=== PATIENT | female | born 1995 | race Caucasian/White ===

== ENCOUNTER → 2017-08-08 | Outpatient (CLI) | payer OTHER ==
[~2017-08-08] MED LIST: CODGUAEL PO; OTC COUGH MED; Omeprazole20 M1 PO
== END | disposition home or self-care (01) ==
LOC: LAB EV 14:21 → LAB SHORT 14:21
DX: J02.9 Acute pharyngitis, unspecified (principal)
CPT/HCPCS: 87070

== ENCOUNTER → 2018-05-02 | Outpatient (CLI) | payer BC | END | disposition home or self-care (01) | LOC: LAB SHORT 14:38 → LAB EV 14:38 | DX: R50.9 Fever, unspecified (principal) | CPT/HCPCS: 87070 ==

== ENCOUNTER 2018-05-08 17:13 | Emergency (ER) | payer BC ==
[~2018-05-08] VITALS: Ht 167.6 cm; Wt 61.2 kg
== END 2018-05-08 19:04 | disposition home or self-care (01) ==
LOC: ER 17:13
DX: G03.9 Meningitis, unspecified (principal); J02.9 Acute pharyngitis, unspecified; J04.0 Acute laryngitis
CPT/HCPCS: 99283; J1100; Q0163

== ENCOUNTER → 2020-05-05 | Outpatient (CLI) | payer OTHER ==
[~2020-05-05] MED LIST changes: +ACCUTANE30 MG PO; +CITA20 PO; +CITALOPRAM HBR10 MG PO
[2020-05-05 13:05] LABS: Source, Urine Clean Catch
[2020-05-05 17:52] LABS: Appearance, Urine Clear (Clear); Bilirubin, Urine Neg (Neg); Blood, Urine 1+ (Neg); Color, Urine Yellow (P-Yellow); Glucose Qualitative, Urine Neg (Neg); Ketones, Urine Neg (Neg); Leukocyte Esterase, Urine 1+ (Neg); Nitrite, Urine Pos (Neg); Protein, Urine Neg (Neg); Urobilinogen, Urine NORM (Normal)
[2020-05-05 18:14] LABS: Bacteria Many /hpf; Red Blood Cells, Urine 0-2 /hpf (0-2); Squamous Epithelial Cells Few /hpf (Few)
[2020-05-06 10:30] LABS: Candida species (DNA Probe) Negative (NEGATIVE); G. vaginalis (DNA Probe) Positive (NEGATIVE); T. vaginalis (DNA Probe) Negative (NEGATIVE)
[2020-05-07 03:08] LABS: CHLAMYDIA TRACHOMATIS, NAA Negative (Negative); HPV 16 Negative (Negative); HPV 18 Negative (Negative); HPV OTHER HR TYPES Negative (Negative)
== END | disposition home or self-care (01) ==
LOC: LAB SRC 13:03
PROVIDERS: Nurse Practitioner Family
DX: Z12.4 Encounter for screening for malignant neoplasm of cervix (principal); N72 Inflammatory disease of cervix uteri
CPT/HCPCS: 81001; 87077; 87086; 87186; 87480; 87491; 87510; 87591; 87624; 87660; G0123

== ENCOUNTER 2021-06-01 15:16 | Emergency (ER) | payer OTHER ==
[~2021-06-01] VITALS: Ht 170.2 cm; Wt 65.8 kg
[2021-06-01 15:53] LABS: Source, Urine Clean Catch
[2021-06-01 15:59] LABS: Appearance, Urine Clear (Clear); Bilirubin, Urine Neg (Neg); Blood, Urine Neg (Neg); Color, Urine Yellow (P-Yellow); Glucose Qualitative, Urine Neg (Neg); Ketones, Urine Neg (Neg); Leukocyte Esterase, Urine 2+ (Neg); Nitrite, Urine Neg (Neg); Protein, Urine Neg (Neg); Urobilinogen, Urine NORM (Normal)
[2021-06-01 16:02] LABS: BASOPHILS ABSOLUTE AUTO 0.04 K/mm3 (0.00-0.23); BASOPHILS PERCENT AUTO 0 % (0-2); EOSINOPHILS ABSOLUTE AUTO 0.09 K/mm3 (0.00-0.68); EOSINOPHILS PERCENT AUTO 1 % (0-6); Hematocrit 39.8 % (33.0-51.0); Hemoglobin 13.4 g/dL (11.5-16.0); IMMATURE GRAN ABSOLUTE AUTO 0.02 K/mm3 (0.00-0.10); IMMATURE GRAN PERCENT AUTO 0 % (0-1); LYMPHOCYTES ABSOLUTE AUTO 1.79 K/mm3 (0.84-5.20); LYMPHOCYTES PERCENT AUTO 20 % (21-46); MONOCYTES ABSOLUTE AUTO 0.81 K/mm3 (0.16-1.47); MONOCYTES PERCENT AUTO 9 % (4-13); Mean Corpuscular HGB 29.1 pg (26.0-34.0); Mean Corpuscular HGB Conc 33.7 g/dL (31.5-36.5); Mean Corpuscular Volume 86 fL (80-100); Mean Platelet Volume 12.8 fL (9.1-12.4); NEUTROPHILS ABSOLUTE AUTO 6.17 K/mm3 (1.96-9.15); NEUTROPHILS PERCENT AUTO 69 % (41-73); Platelet Count 230 K/mm3 (150-400); RDW Coefficient Variation 12.4 % (11.7-14.2); RDW Standard Deviation 39.4 fL (35.1-46.3); Red Blood Cell Count 4.61 M/mm3 (3.80-5.20); White Blood Cell Count 8.92 K/mm3 (4.00-11.30)
[2021-06-01 16:20] LABS: Alanine Aminotransfer (ALT/SGP 20 U/L (12-78); Albumin, Blood 4.2 g/dL (3.4-5.0); Albumin/Globulin Ratio 1.2 (0.8-1.8); Alk Phos 58 U/L (50-136); Anion Gap 5 mmol/L (6-16); Aspartate Aminotrans (AST/SGOT 15 U/L (12-37); Bilirubin, Total 0.6 mg/dL (0.1-1.0); Blood Urea Nitrogen 11 mg/dL (8-24); Bun/Creatinine Ratio 13.8 (12.0-20.0); CO2, Blood 25 mmol/L (21-32); Calcium, Blood 9.2 mg/dL (8.5-10.1); Chloride, Blood 109 mmol/L (98-108); Globulin, Blood 3.4 g/dL (2.2-4.0); Glomerular Filtration Rate >60 (60-); Glucose, Blood 90 mg/dL (70-99); Potassium, Blood 4.1 mmol/L (3.5-5.5); Sodium, Blood 139 mmol/L (136-145); Total Protein, Blood 7.6 g/dL (6.4-8.2)
[2021-06-01 16:22] LABS: Bacteria Mod /hpf; Red Blood Cells, Urine 0-2 /hpf (0-2); Squamous Epithelial Cells Few /hpf (Few)
[2021-06-01 16:23] LABS: U Amphetamine Screen Not Detected; U Barbituate Screen Not Detected; U Benzodiazapine Screen Not Detected; U Buprenorphine Screen Not Detected; U Cannabinoids Screen Not Detected; U Cocaine Screen Not Detected; U Methadone Screen Not Detected; U Methamphetamine Screen Not Detected; U Opiates Screen Not Detected; U Oxycodone Screen Not Detected; U Phencyclidine Screen Not Detected; U Propoxyphene Screen Not Detected
== END 2021-06-01 18:11 | disposition home or self-care (01) ==
LOC: ER 15:16
PROVIDERS: Physician Assistant
DX: R07.9 Chest pain, unspecified (principal)
CPT/HCPCS: 36415; 71046; 80053; 81001; 81025; 83690; 83880; 84484; 85025; 87086; 93005; 93010; 99285-25

== ENCOUNTER 2022-03-30 11:53 | Emergency (ER) | payer OTHER ==
[~2022-03-30] VITALS: Ht 170.2 cm; Wt 72.6 kg
[2022-03-30 12:32] LABS: BASOPHILS ABSOLUTE AUTO 0.05 K/mm3 (0.00-0.23); BASOPHILS PERCENT AUTO 1 % (0-2); EOSINOPHILS ABSOLUTE AUTO 0.06 K/mm3 (0.00-0.68); EOSINOPHILS PERCENT AUTO 1 % (0-6); Hematocrit 40.1 % (33.0-51.0); Hemoglobin 13.6 g/dL (11.5-16.0); IMMATURE GRAN ABSOLUTE AUTO 0.03 K/mm3 (0.00-0.10); IMMATURE GRAN PERCENT AUTO 0 % (0-1); LYMPHOCYTES ABSOLUTE AUTO 1.31 K/mm3 (0.84-5.20); LYMPHOCYTES PERCENT AUTO 18 % (21-46); MONOCYTES PERCENT AUTO 8 % (4-13); Mean Corpuscular HGB 28.6 pg (26.0-34.0); Mean Corpuscular HGB Conc 33.9 g/dL (31.5-36.5); Mean Corpuscular Volume 84 fL (80-100); Mean Platelet Volume 11.8 fL (9.1-12.4); NEUTROPHILS ABSOLUTE AUTO 5.41 K/mm3 (1.96-9.15); NEUTROPHILS PERCENT AUTO 73 % (41-73); Platelet Count 307 K/mm3 (150-400); RDW Coefficient Variation 12.3 % (11.7-14.2); RDW Standard Deviation 37.1 fL (35.1-46.3); Red Blood Cell Count 4.76 M/mm3 (3.80-5.20); White Blood Cell Count 7.46 K/mm3 (4.00-11.30)
[2022-03-30 12:51] LABS: Acetaminophen, Random <2.0 ug/mL (10.0-30.0); Ethanol (Alcohol), Blood, Med <3 mg/dL; Salicylate <1.7 mg/dL (2.8-20.0)
[2022-03-30 13:07] LABS: Alanine Aminotransfer (ALT/SGP 22 U/L (12-78); Albumin, Blood 4.2 g/dL (3.4-5.0); Albumin/Globulin Ratio 1.2 (0.8-1.8); Alk Phos 72 U/L (50-136); Anion Gap 5 mmol/L (6-16); Aspartate Aminotrans (AST/SGOT 17 U/L (12-37); Bilirubin, Total 0.3 mg/dL (0.1-1.0); Blood Urea Nitrogen 11 mg/dL (8-24); Bun/Creatinine Ratio 13.7 (12.0-20.0); CO2, Blood 24 mmol/L (21-32); Calcium, Blood 9.2 mg/dL (8.5-10.1); Chloride, Blood 110 mmol/L (98-108); Globulin, Blood 3.6 g/dL (2.2-4.0); Glomerular Filtration Rate 105 (60-); Glucose, Blood 104 mg/dL (70-99); Potassium, Blood 3.9 mmol/L (3.5-5.5); Sodium, Blood 139 mmol/L (136-145); Total Protein, Blood 7.8 g/dL (6.4-8.2)
[2022-03-30 13:56] LABS: Influenza A, PCR NEGATIVE (NEGATIVE); Influenza B, PCR NEGATIVE (NEGATIVE); Resp Syncytial Virus, PCR NEGATIVE (NEGATIVE); SARS-Cov-2 (COVID-19) PCR, MMC NEGATIVE (NEGATIVE)
[2022-03-30 14:41] LABS: Source, Urine Clean Catch
[2022-03-30 14:49] LABS: Appearance, Urine Clear (Clear); Bilirubin, Urine Neg (Neg); Blood, Urine Neg (Neg); Color, Urine Yellow (P-Yellow); Glucose Qualitative, Urine Neg (Neg); Ketones, Urine Neg (Neg); Leukocyte Esterase, Urine 1+ (Neg); Nitrite, Urine Neg (Neg); Protein, Urine Neg (Neg); Urobilinogen, Urine NORM (Normal)
[2022-03-30 15:17] LABS: U Amphetamine Screen Not Detected; U Barbituate Screen Not Detected; U Benzodiazapine Screen Not Detected; U Buprenorphine Screen Not Detected; U Cannabinoids Screen Not Detected; U Cocaine Screen Not Detected; U Methadone Screen Not Detected; U Methamphetamine Screen Not Detected; U Opiates Screen Not Detected; U Oxycodone Screen Not Detected; U Phencyclidine Screen Not Detected; U Propoxyphene Screen Not Detected
[2022-03-30 15:23] LABS: Bacteria Mod /hpf; Mucus Light (0-Heavy); Red Blood Cells, Urine 0-2 /hpf (0-2); Squamous Epithelial Cells Rare /hpf (Few); White Blood Cells, Urine 0-2 /hpf (0-5)
== END 2022-03-30 16:11 | disposition home or self-care (01) ==
LOC: ER 11:53
PROVIDERS: Physician Assistant
DX: F43.9 Reaction to severe stress, unspecified (principal); Z79.899 Other long term (current) drug therapy; Z20.822 Contact with and (suspected) exposure to COVID-19
CPT/HCPCS: 0241U; 36415; 80053; 81001; 81025; 85025; A9270; G0480

== ENCOUNTER → 2022-11-01 | Outpatient (CLI) | payer OTHER ==
[2022-11-02 13:59] LABS: Candida species (DNA Probe) Negative (NEGATIVE); G. vaginalis (DNA Probe) Negative (NEGATIVE); T. vaginalis (DNA Probe) Negative (NEGATIVE)
[2022-11-03 01:10] LABS: CHLAMYDIA TRACHOMATIS, NAA Negative (Negative)
== END ==
LOC: LAB 15:53 → LAB SHORT 15:53
PROVIDERS: Advanced Practice Midwife
DX: Z01.419 Encounter for gynecological examination (general) (routine) without abnormal findings (principal); Z11.3 Encounter for screening for infections with a predominantly sexual mode of transmission; R10.2 Pelvic and perineal pain
CPT/HCPCS: 87480; 87491; 87510; 87591; 87660; G0145

== ENCOUNTER 2025-02-22 13:31 | Observation (INO) | payer OTHER ==
[~2025-02-22] VITALS: Ht 170.2 cm; Wt 70.3 kg
[2025-02-22] MEDS ORDERED: Celexa20 MG PO (13:46)
[2025-02-22 14:11] LABS: BASOPHILS ABSOLUTE AUTO 0.06 K/mm3 (0.00-0.23); BASOPHILS PERCENT AUTO 1 % (0-2); EOSINOPHILS ABSOLUTE AUTO 0.08 K/mm3 (0.00-0.68); EOSINOPHILS PERCENT AUTO 1 % (0-6); Hematocrit 36.3 % (33.0-51.0); Hemoglobin 11.9 g/dL (11.5-16.0); IMMATURE GRAN ABSOLUTE AUTO 0.03 K/mm3 (0.00-0.10); IMMATURE GRAN PERCENT AUTO 1 % (0-1); LYMPHOCYTES ABSOLUTE AUTO 1.40 K/mm3 (0.84-5.20); LYMPHOCYTES PERCENT AUTO 24 % (21-46); MONOCYTES ABSOLUTE AUTO 0.66 K/mm3 (0.16-1.47); MONOCYTES PERCENT AUTO 12 % (4-13); Mean Corpuscular HGB Conc 32.8 g/dL (31.5-36.5); Mean Corpuscular Volume 87 fL (80-100); NEUTROPHILS ABSOLUTE AUTO 3.50 K/mm3 (1.96-9.15); NEUTROPHILS PERCENT AUTO 61 % (41-73); NRBC ABSOLUTE 0.00 K/mm3 (0.00-0.02); NRBC Auto 0.0 /100 WBC (0.0-0.2); Platelet Count 185 K/mm3 (150-400); RDW Coefficient Variation 12.6 % (11.7-14.2); RDW Standard Deviation 40.2 fL (35.1-46.3)
[2025-02-22 15:06] LABS: Acetaminophen, Random 11.6 ug/mL (10.0-30.0); Alanine Aminotransfer (ALT/SGP 19 U/L (12-78); Albumin, Blood 3.7 g/dL (3.4-5.0); Albumin/Globulin Ratio 1.2 (0.8-1.8); Anion Gap 7 mmol/L (3-11); Aspartate Aminotrans (AST/SGOT 16 U/L (12-37); Bilirubin, Total 0.4 mg/dL (0.1-1.0); Blood Urea Nitrogen 13 mg/dL (8-24); CO2, Blood 23 mmol/L (21-32); Calcium, Blood 8.4 mg/dL (8.5-10.1); Chloride, Blood 109 mmol/L (98-108); Creatinine, Blood 0.79 mg/dL (0.40-1.00); Ethanol (Alcohol), Blood, Med <3 mg/dL; Globulin, Blood 3.0 g/dL (2.2-4.0); Glucose, Blood 96 mg/dL (70-99); Magnesium, Blood 1.9 mg/dL (1.6-2.4); Potassium, Blood 4.3 mmol/L (3.5-5.5); Salicylate <1.7 mg/dL (2.8-20.0); Sodium, Blood 135 mmol/L (136-145); Thyroid Stimulating Hormone 5.250 uIU/mL (0.360-4.800); Total Protein, Blood 6.7 g/dL (6.4-8.2)
[2025-02-22 17:47] LABS: Source, Urine Clean Catch
[2025-02-22 17:52] LABS: Acetaminophen, Random 3.3 ug/mL (10.0-30.0); Salicylate <1.7 mg/dL (2.8-20.0)
[2025-02-22 17:57] LABS: Bilirubin, Urine Neg (Neg); Color, Urine Yellow (P-Yellow); Glucose Qualitative, Urine Neg (Neg); Ketones, Urine Neg (Neg); Leukocyte Esterase, Urine 1+ (Neg); Protein, Urine Neg (Neg); Specific Gravity, Urine 1.010 (1.003-1.022); Urobilinogen, Urine NORM (Normal)
[2025-02-22 18:05] LABS: Red Blood Cells, Urine 0-2 /hpf (0-2)
[2025-02-22 18:11] LABS: U Amphetamine Screen Not Detected; U Barbiturate Screen Not Detected; U Benzodiazapine Screen Not Detected; U Buprenorphine Screen Not Detected; U Cannabinoids Screen Not Detected; U Cocaine Screen Not Detected; U Methadone Screen Not Detected; U Methamphetamine Screen Not Detected; U Opiates Screen Not Detected; U Oxycodone Screen DETECTED; U Phencyclidine Screen Not Detected
[2025-02-23 09:22] VITALS: BP 114/73
[2025-02-27 07:03] LABS: AMITRIPTYLINE, QUANT, URN <100 ng/mL; CLOMIPRAMINE QUANT, URN <200 ng/mL; DESIPRAMINE QUANT, URN <100 ng/mL; DOXEPIN QUANT, URN <100 ng/mL; IMIPRAMINE QUANT, URN <100 ng/mL; NORCLOMIPRAMINE QUANT, URN <200 ng/mL; NORDOXEPIN QUANT, URN <100 ng/mL; NORTRIPTYLINE, QUANT, URN <100 ng/mL; PROTRIPTYLINE QUANT, URN <100 ng/mL
== END 2025-02-23 13:30 | disposition other institution (70) ==
LOC: ER 13:31 → EOR 13:32 → EDBEDREQ 02-23 12:06 → EOR 02-23 13:30
PROVIDERS: ADMIT Emergency Medicine
DX: T40.2X2A Poisoning by other opioids, intentional self-harm, initial encounter (principal); F33.9 Major depressive disorder, recurrent, unspecified
CPT/HCPCS: 80053; 80320; 81001; 81025; 83735; 84439; 84443; 85025; 93005; 93010; 99285-25; A9270; G0378; G0480; G0481

== ENCOUNTER 2025-02-23 11:08 | Inpatient (IN) | payer OTHER ==
[~2025-02-23] VITALS: Ht 170.2 cm; Wt 70.5 kg
[~2025-02-23 11:08] MED LIST changes: +Celexa20 MG PO
[2025-02-23] MEDS ORDERED: Polyethylene Glycol 3350 17 gm PO PRN (12:55)
[2025-02-23] MEDS ORDERED: FLU VACC TS2025-26(6MOS UP)/PF 45 MCG/0.5 ML SYRINGE IM SCH (13:00)
[2025-02-23] MEDS ORDERED: Ondansetron 4 MG SoluTab MM PRN (13:00)
[2025-02-23] MEDS ORDERED: Aluminum Hydroxide 320MG/5ML 473 ML PO PRN (13:05)
[2025-02-23 13:39] VITALS: BP 105/74
--- NOTE | 2025-02-23 16:44 | NUR ---
ADMISSION SUMMARY PT ARRIVED TO [facility] AT 1333 COMING FROM [facility] ED CRISIS UNIT. PT WAS DRESSED INTO GREEN SAFETY SCRUBS, SKIN CHECK WAS CLEAR, NO ISSUES IDENTIFIED, SHE HAS 4 NOSE PIERCINGS WITH 3 POSTS AND ONE RING, ALL ARE PERMANENTLY PLACED, HEAD CHECK WAS CLEAR WELL. PT WAS BROUGHT TO THE ED AFTER INGESTING 10 TABLETS OF PERCOCET, TAKING THEM FROM A FULL BOTTLE OF PILLS THAT BELONG TO HER . WHEN ASKED PT STS "I HAVE A LOT OF STRESS IN MY LIFE, IT'S OVERWHELMING. IJUST HIT A WALL AND COULDN'T TAKE IT ANYMORE. I TOOK 10 OF MY 'S PERCOCET. IT WAS REALLY STUPID" PT STS SHE ATTEMPTED TO CUT HER WRISTS AT THE AGE OF 22 IN AN ATTEMPT. SHE HAS SIGNIFICANT FAMILY HX OF MENTAL HEALTH. PT IS TO HER , JAMSHID, OF SIX YEARS. THEY LIVE IN A "[place]" [place] ON JAMSHID'S [address] [place]. THEY HAVE 7 DOGS THAT ARE THEIR LIVES. 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 PT'S ANXIETY/STRESS MAINLY IS DUE TO FAMILY DYNAMICS. PT'S PATERNAL SIDE FAMILY DO NOT GET ALONG WITH THE AND THIS IS THE STRESSOR FOR HER. PT'S FATHER APRIL 2024 FROM MEDICAL ISSUES. PT WAS ORIENTED TO THE UNIT, UNDERSTANDS THE Q15 MIN CHECKS.
--- NOTE | 2025-02-23 17:15 | NUR ---
SHIFT SUMMARY ADDITIONAL INFO. HAVE HAD LONG CONVERSATION WITH JAMSHID WHO HAS TALKED TO THE PT BY NOW. PT IS VERY UPSET ABOUT BEING ON A CO-ED UNIT AND THAT SHE HAS A ROOM MATE. PT WAS ALSO TOLD, WAS THE , THAT SHE COULD SIGN OUT AFTER SHE GOT TO THIS UNIT. PT DID NOT KNOW SHE WAS PLACED ON A HOLD 02/22/25 AROUND 0400 BY ER PROVIDER. THEN DR TURCIOS SAW HER THIS MORNING. I SPOKE TO HIM THIS AFTERNOON. HE STATED HE'S THE ONE WHO TOLD HER SHE COULD SIGN OUT WHEN SHE WANTED, NOT KNOWING PT WAS ALREADY ON A HOLD. AFTER THAT PT MADE SI COMMENTS AND [place] THEN PUT ON A HOLD. PT IS WANTING TO MAKE A CLEAR POINT THAT IF PT REALLY WANTED TO SHE WOULD HAVE TAKEN "ALL THE 120 PILLS" RATHER THAN JUST 10. PT AND WERE EDUCATED ON WHAT A HOLD MEANS AND THAT THE PROVIDER IS THE ONLY ONE THAT CAN MAKE ANY CHANGES.
[2025-02-23 20:33] VITALS: BP 118/82
--- NOTE | 2025-02-24 04:34 | NUR ---
SHIFT SUMMARY Patient spent most of her evening in her room. She denied SI,HI and AVTH during the evening assessment. She is alert and oriented times four, and very pleasant with staff. Will continue close monitoring every 15 minutes for comfort and safety per unit protocol.
[2025-02-24 07:57] VITALS: BP 108/77
[2025-02-24 08:18] LABS: CHOL/HDL RATIO 2.4; Cholesterol 153 mg/dL (50-200); HDL Cholesterol 63 mg/dL (>39); LDL/HDL RATIO 1.2; Low Density Lipoprotein Chol 78 mg/dL (0-110); Triglycerides 60 mg/dL (30-140); Very Low Density Lipoprot Chol 12 mg/dL (6-28)
[2025-02-24] MEDS ORDERED: Multivitamins 1 Tab PO SCH (09:00)
--- NOTE | 2025-02-24 12:17 | NUR ---
MID SHIFT SUMMARY PT A/O X4; PLEASANT AND COOPERATIVE WITH CARE. SHE DENIES SI, HI, AVTH. PT C/O HEADACHE AND TREATED PER EMR. SHE DESCRIBES HER MOOD "MUCH BETTER" AND HER AFFECT IS CONGRUENT TO STATED MOOD. PT PARTICIPATING IN MORNING/AFTERNOON GROUPS AND MEALS.
--- NOTE | 2025-02-24 16:36 | NUR ---
Summary: Assumed care of this patient after lunch. Patient denied SI HI and hallucinations today. She had a visitor this afternoon. Patient has been observed in the group room talking with peers and staff. She has not requested any PRN this shift. Please see the mid day shift summary as well.
[2025-02-24 20:31] VITALS: BP 116/76
--- NOTE | 2025-02-25 04:16 | NUR ---
SHIFT SUMMARY PATIENT RESTING QUIETLY IN BED AT BEGINNING OF SHIFT, AWAKENS EASILY. WALKING TRAVIS DURING ASSESSMENT. HAVING FLUENT CONVERSATION. VERBALIZED THAT SHE FEELS "GOOD" TONIGHT AND THAT SHE WENT TO BED THIS AFTERNOON BECAUSE SHE WAS FEELING COLD AND WANTED TO WARM UP. DENIES SI, HI, OR AVTH. STAYING UP FOR SNACK THEN GOING TO BED AFTER HS MEDICATIONS. PATIENT SLEEPING WELL T/O NIGHT RESP EVEN AND UNLABORED. CONTINUE TO MONITOR Q15MIN
[2025-02-25 08:21] VITALS: BP 113/83
[2025-02-25 10:20] VITALS: BP 113/83
--- NOTE | 2025-02-25 17:18 | NUR ---
sUMMARY- PATIENT IS ALERT AND ORIENTATED. SHE STATES SHE FEELS "FINE". SHE HAS NO ANXIETY, AND DENIES ALL HALLUCINATIONS. PATIENT REPORTS HAVING NO THOUGHTS OF SUICIDE OR SELF HARM. sHE HAS BEEN PARTICIPATING IN GROUPS AND IS OPEN TO TALKING WITH PEERS AND STAFF. PATIENT HAD VISITORS THIS EVENING. eXPECTED DISCHARGE IS sunday02/27/25.
[2025-02-25 19:26] VITALS: BP 113/81
--- NOTE | 2025-02-26 04:29 | NUR ---
SHIFT SUMMARY PATIENT UP IN [place] VISITING WITH STAFF AND PEERS AND WATCHING TV. CONVERSATION FLUENT AND CLEAR. VERBALIZED THAT SHE HAD A GOOD DAY TODAY. DENIES SI, HI, OR AVTH. NOSE PIERCING REMAIN IN PLACE TO BOTH NOSTRILS. COOPERATIVE WITH HS MEDICATIONS . AFTER SNACK WATCHING MOVIE WITH PEERS. APPEARS TO BE SLEEPING WELL T/O NIGHT RESP EVEN AND UNLABORED. CONTINUE TO MONITOR Q15MIN. NO PRN'S NEEDED T/O NIGHT.
--- NOTE | 2025-02-26 14:00 | NUR ---
SHIFT SUMMARY DENIES SI, HI, AVTH. INTERACTING W/ PEERS AND STAFF. ATTENDING GROUPS AND MEALS. NO ACUTE EVENTS TODAY.
--- NOTE | 2025-02-27 04:25 | NUR ---
SHIFT SUMMARY: PATIENT IS A 29 YEAR OLD FEMALE ADMITTED TO THE [facility] ON 02/23/25 FOR SUICIDAL IDEATION. SHE PLANS TO DISCHARGE TODAY, 02/27/25. SHE PRESENTED ADEQUATELY GROOMED, WITH TWO NOSE RINGS IN PLACE AND INTACT. SHE WAS A AND O X4, SPOKE IN A MODERATE TONE OF VOICE AND MADE APPROPRIATE EYE CONTACT. SHE DESCRIBED HER MOOD "EXCITED ABOUT LEAVING" AND STATED, "IT WAS A GOOD DAY. I'M NOT HAPPY ABOUT HAVING A ROOMMATE, BUT I'M LEAVING TOMORROW." SHE DENIED SUICIDAL IDEATION, THOUGHTS OF SELF HARMING AND A/V/T HALLUCINATIONS. SHE PARTICIPATED IN SNACK AND WRAP UP GROUP, AND WAS COMPLIANT WITH EVENING MEDICATION ADMINISTRATION. SHE WAS CONCERNED ABOUT HER CELEXA BEING PRESCRIBED SHE DISCHARGES, AND WAS ASSURED THAT A PRESCRIPTION WOULD BE SENT TO HER PHARMACY OF CHOICE. SHE DID NOT HAVE ANY PRN MEDICATION. SHE WENT TO BED AFTER SNACK AND WAS NOTED TO BE RESTING WITH EYES CLOSED AND RESPIRATIONS CONFIRMED THROUGHOUT THE NIGHT. CONTINUING TO MONITOR FOR SAFETY WITH Q15 MINUTE CHECKS.
[2025-02-27 07:17] VITALS: BP 108/73
--- NOTE | 2025-02-27 08:48 | NUR ---
IMPORTANT DISCHARGE INFORMATION PATIENT TO BE DISCHARGED HOME. HER SPOUSE "JAMSHID" WILL BE PICKING HER UP AROUND 1:30PM. ALL PARTIES VERBALIZE AN UNDERSTANDING. FOLLOW UP APPOINTMENTS: PCP ON 03/03/25 AT 11:00AM WITH PAMELA AT [facility]. MENTAL HEALTH REFERRAL PLACED. FOLLOW UP WITH [facility] ON 03/05/25 WITH [facility] 3RD FLOOR ON 03/05/25 AT 2PM. PHARMACY: [facility] IN [place] FAX NUMBER .
--- NOTE | 2025-02-27 10:40 | NUR ---
UPDATE PT DENIES SI, HI, AVTH. PLEASANT AND COOPERATIVE. GOAL ORIENTED. INTERACTING W/ PEERS AND STAFF, ATTENDING GROUPS, AND MEALS. DISCHARGE PACKET REVIEWED AND FORM SIGNED. EDUCATION GIVEN. PT TO BE DISCHARGED 1330~
--- NOTE | 2025-02-27 14:09 | NUR ---
DISCHARGE NO ACUTE EVENTS SINCE PREVIOUS NOTE. DC'D W/ BELONGINGS, DISCHARGE PACKET AT [phone]
== END 2025-02-27 13:30 | disposition home or self-care (01) | DRG 885 ==
LOC: BHU 11:08
PROVIDERS: Psychiatry & Neurology Psychiatry; ADMIT Psychiatry & Neurology Psychiatry
DX: F33.2 Major depressive disorder, recurrent severe without psychotic features (principal); R45.851 Suicidal ideations; Z79.899 Other long term (current) drug therapy; Z28.21 Immunization not carried out because of patient refusal
CPT/HCPCS: 36415; 80061; 83036; A9270